=== PATIENT | female | born 1990 | race Caucasian/White ===

== ENCOUNTER 2016-09-28 18:10 | Observation (INO) ==
[2016-09-28 18:38] LABS: Bilirubin,Urine Negative (Negative); Blood,Urine Large (Negative); Clarity,Urine Clear (Clear); Color,Urine Yellow (Yellow); Glucose,Urine (UA) Normal (Normal); Ketones,Urine Negative (Negative); Leukocyte Esterase,Urine Negative (Negative); Nitrite,Urine Negative (Negative); PH,Urine 6.5 pH Units (5.0-8.0); Protein,Urine Trace mg/dL (Neg-Trace); Specific Gravity,Urine 1.021 (1.010-1.025); Urobilinogen,Urine Normal (Normal)
[2016-09-28 18:42] LABS: Bacteria,Urine Moderate per hpf (None-Few); Hyaline Casts,Urine None Seen per lpf (None-Few); Squamous Epithelial Cell,Urine Many per lpf (None-Few)
[2016-09-28 18:59] LABS: Mucus,Urine Many (Few)
--- NOTE | 2016-09-28 19:52 | OB/GYN Progress Note ---
Date of Encounter: 09/28/16 Time of Encounter: 19:49 - Assessment and Plan (1) 37 weeks gestation of Current Visit: Yes Status: Acute (2) Vaginitis affecting in third trimester, antepartum Current Visit: Yes Status: Acute vaginitis panel obtained (3) Vaginal bleeding during , antepartum Current Visit: Yes Status: Acute No active bleeding at this time and history+exam suggestive of clinical cervicitis Qualifiers: Trimester: third trimester Qualified Code(s): O46.93 - Antepartum hemorrhage, unspecified, third trimester Subjective - Subjective Principal diagnosis: 37 wk IUP Interval history: 26 y/o at 37 weeks who presents with concerns of vaginal bleeding. She was checked yesterday by Dr. Diaz in his office and was told she was 2 cm. She had some low-grade cramping and presents today having seen bleeding in the toilet after voiding. She denies any hematuria, dysuria or urinary frequency. She reports being irritated vaginally for about a month with some discharge but has never been checked or evaluated. She reports movement has been normal. She denies any loss of fluid. She reports some low back cramping. She denies any problems with this until now. records are not available as patient receives care outside of this institution Antepartum ROS: new complaints, vaginal bleeding, movement normal, other ( vaginal d/c and irritation) Objective - Vital Signs Vital Signs: Intake and Output 09/28/16 09/28/16 09/28/16 07:59 15:59 23:59 Other: Weight 78.7 kg Patient Weight 09/28/16 23:59 Weight 78.7 kg - Exam FHR: category 1 FHR comments: 120s baseline, CAT 1 Auscultation: bilateral: normal Abdomen: Present: normal appearance, soft, gravid. Absent: distention, tenderness Cervical dilation: 2 Cervix effacement: 50 Comments: Cervical exam per RN with me in attendance. Extremities are nontender without edema. DTRs are 2+, no clonus. Cardiovascular, regular rate and rhythm. No active bleeding seen. Vaginosis panel obtained - Labs Labs: Abnormal lab results Urine Blood Large (Negative) H 09/28/16 18:25 Urine Microscopic RBC 3-5 per hpf (0-3) H 09/28/16 18:25 Urine Microscopic WBC 3-5 per hpf (0-3) H 09/28/16 18:25 Ur Squamous Epith Cells Many per lpf (None-Few) H 09/28/16 18:25 Urine Bacteria Moderate per hpf (None-Few) H 09/28/16 18:25 Urine Mucus Many (Few) H 09/28/16 18:25
[2016-09-28 20:39] LABS: Candida DNA Not Detected (Not Detect); Trichomonas DNA Not Detected (Not Detect)
[2016-09-28 20:40] LABS: Gardnerella DNA ***DETECTED*** (Not Detect)
[2016-09-28] MEDS ORDERED: metroNIDAZOLE 500 MG TABLET PO ONE (20:54)
== END 2016-09-28 21:19 | disposition home or self-care (01) ==
LOC: 1NENULAB
PROVIDERS: ADMIT Obstetrics & Gynecology; ATTEND Obstetrics & Gynecology

== ENCOUNTER → 2018-04-16 11:00 | Observation (INO) ==
[2018-04-16 09:54] LABS: Bilirubin,Urine Negative (Negative); Blood,Urine Negative (Negative); Color,Urine Yellow (Yellow); Glucose,Urine (UA) Normal (Normal); Ketones,Urine Negative (Negative); Leukocyte Esterase,Urine Small (Negative); Nitrite,Urine Negative (Negative); Protein,Urine Trace mg/dL (Neg-Trace); Specific Gravity,Urine 1.023 (1.010-1.025); Urobilinogen,Urine Normal (Normal)
[2018-04-16 09:56] LABS: Bacteria,Urine Moderate per hpf (None-Few); Hyaline Casts,Urine None Seen per lpf (None-Few); RBC,Urine 0-3 per hpf (0-3); Squamous Epithelial Cell,Urine Many per lpf (None-Few)
[2018-04-16 09:57] LABS: Clarity,Urine Hazy (Clear)
--- NOTE | 2018-04-16 10:44 | OB/GYN Progress Note ---
Date of Encounter: 04/16/18 Time of Encounter: 10:42 - Assessment and Plan (1) 33 weeks gestation of Current Visit: Yes Status: Acute Continue care as already scheduled labor precautions given Discharge home (2) Pain of round ligament during Current Visit: Yes Status: Acute May use maternity support belt May use essential oils May use heating pad for 20 minutes at a time May use warm bath Subjective - Subjective Principal diagnosis: Round ligament pain during Interval history: Ms. Allen is a 27 year old at 33 weeks gestation who presents with complaints of bilateral lower quadrant abdominal pain 3 days. She reports feels like she pulled a muscle. She also states it is tender to light palpation. She endorses good movement and denies contractions, leakage of fluid, vaginal bleeding. She is seen during this by Dr. Hernandez. Antepartum ROS: new complaints, movement normal, no loss of fluid, no vaginal bleeding, no contractions Objective - Vital Signs Vital Signs: Intake and Output 04/15/18 04/16/18 04/16/18 23:59 07:59 15:59 Other: Weight 81 kg Patient Weight 04/16/18 23:59 Weight 81 kg - Exam FHR: category 1 FHR comments: Baseline 140 Moderate variability Accelerations present 15x15 No decelerations FHR category I No toco activity Auscultation: bilateral: normal Abdomen: Present: normal appearance, soft, gravid Uterus: Present: normal, firm - Labs Labs: Abnormal lab results Ur Specimen Adequacy See below A 04/16/18 09:37 Urine Clarity Hazy (Clear) A 04/16/18 09:37 Ur Leukocyte Esterase Small (Negative) H 04/16/18 09:37 Urine Microscopic WBC 5-15 per hpf (0-3) H 04/16/18 09:37 Ur Squamous Epith Cells Many per lpf (None-Few) H 04/16/18 09:37 Urine Bacteria Moderate per hpf (None-Few) H 04/16/18 09:37 Ur Culture Indicated? NO. (NO) A 04/16/18 09:37
[2018-04-16 10:52] LABS: Amphetamine Screen,Urine Negative ng/mL (Cutoff=1000); Barbiturate Screen,Urine Negative ng/mL (Cutoff=200); Benzodiazepines Screen,Urine Negative ng/mL (Cutoff=200); Cannabinoid Screen,Urine Positive ng/mL (Cutoff = 50); Cocaine Screen,Urine Negative ng/mL (Cutoff= 300); Opiate Screen,Urine Negative ng/mL (Cutoff=300); Phencyclidine Screen,Urine Negative ng/mL (Cutoff=25)
== END | disposition home or self-care (01) ==
LOC: 1NENULAB
PROVIDERS: ADMIT Obstetrics & Gynecology; ATTEND Obstetrics & Gynecology